=== PATIENT | male | born 1970 | race Caucasian/White ===

== ENCOUNTER 2021-06-30 09:45 | Inpatient (IN) ==
[2021-06-30] MEDS ORDERED: Ondansetron 4 MG/2 ML VIAL IVP ONE (10:22)
[2021-06-30 11:17] LABS: Basophils % 0.1 %; Eosinophils % 0.1 %; Hematocrit 42.4 % (37.5-50.1); Hemoglobin 14.6 g/dL (12.9-16.9); Immature Granulocytes % 0.5 % (0-4); Lymphocytes # 1.4 K/mcL (0.6-4.6); Lymphocytes % 7.6 %; Mean Corpuscular HGB Conc 34.4 g/dL (31.6-35.5); Mean Corpuscular Hemoglobin 30.6 pg (28.0-33.3); Mean Corpuscular Volume 88.9 fL (83.0-100.0); Mean Platelet Volume 10.7 fL (9.4-12.4); Monocytes # 1.2 K/mcL (0.0-1.3); Monocytes % 6.9 %; Platelet Count 303 K/mcL (140-400); Red Blood Count 4.77 M/mcL (4.19-5.50); Segmented Neutrophils % 84.8 %; White Blood Count 17.7 K/mcL (4.3-11.1)
[2021-06-30 11:40] LABS: Alanine Aminotransferase 21 Units/L (7-52); Albumin/Globulin Ratio 1.1 (1.1-2.2); Alkaline Phosphatase 87 Units/L (34-104); Aspartate Amino Transferase 19 Units/L (13-39); BUN/Creatinine Ratio 15 (6-26); Bilirubin,Total 1.3 mg/dL (0.3-1.0); Blood Urea Nitrogen 17 mg/dL (6-20); Calcium 9.3 mg/dL (8.6-10.3); Carbon Dioxide 21 mEq/L (23-29); Chloride 101 mEq/L (98-107); Globulin 3.8 g/dL (2.4-3.5); Glucose 166 mg/dL (70-105); Lipase 7 Units/L (11-82); Osmolality,Calculated 281 (280-300); Potassium 3.6 mEq/L (3.5-5.1); Sodium 133 mEq/L (136-145); Total Protein 7.8 g/dL (6.4-8.9); Troponin I 0.06 ng/mL (< 0.04); eGFR For African Americans > 60 (> 60); eGFR For Non-African Americans > 60 (> 60)
[2021-06-30 11:48] LABS: Influenza A PCR Negative (Negative); Influenza B PCR Negative (Negative); Resp. Syncytial Virus PCR Negative (Negative)
[2021-06-30 12:19] LABS: SARS-CoV-2 by PCR (In House) Negative (Negative)
[2021-06-30 12:32] LABS: Thyroid Stimulating Hormone 1.708 mcIU/mL (0.340-5.600)
[2021-06-30] MEDS ORDERED: Isovue-370 500 ML BOTTLE IVP ONE (12:41)
[2021-06-30 13:03] LABS: INR 1.4; Prothrombin Time 15.7 Seconds (9.4-12.1)
[2021-06-30 13:06] LABS: Activated Partial Thrombo Time 32.8 Seconds (26.0-36.0)
[2021-06-30] MEDS ORDERED: Aspirin 325 MG TABLET PO ONE (14:16)
[2021-06-30] MEDS ORDERED: Ondansetron 4 MG/2 ML VIAL IVP PRN (16:04)
[2021-06-30] MEDS ORDERED: Naloxone 0.4 MG/ML INJ IVP PRN (16:04)
[2021-06-30] MEDS ORDERED: Ringers Solution, Lactated 1,000 ML IVC ONE (16:10)
[2021-06-30] MEDS ORDERED: Dextrose Gel 15 GM/37.5 ML TUBE PO PRN ×2 (16:51)
[2021-06-30] MEDS ORDERED: D5% in Water 1,000 ML IVC PRN (16:51)
[2021-06-30] MEDS ORDERED: *HR* Dextrose 50 % in Water (Syg) 50 ML SYRINGE IVP PRN (16:51)
[2021-06-30] MEDS ORDERED: Ketorolac 30 MG/ML VIAL IVP PRN (17:34)
[2021-06-30] MEDS ORDERED: Acetaminophen 325 MG TABLET PO PRN (17:34)
[2021-06-30] MEDS: Ringers Solution, Lactated 1,000 ML IVC SCH (19:52)
[2021-06-30] MEDS ORDERED: *HR* HYDROmorphone (PF) 1 MG/ML SYRINGE IVP ONE (23:22)
[2021-07-01 01:34] LABS: Basophils % 0.2 %; Eosinophils # 0.1 K/mcL (0.0-0.6); Eosinophils % 0.6 %; Hematocrit 39.9 % (37.5-50.1); Hemoglobin 13.6 g/dL (12.9-16.9); Immature Granulocytes % 0.5 % (0-4); Lymphocytes # 2.1 K/mcL (0.6-4.6); Lymphocytes % 15.6 %; Mean Corpuscular HGB Conc 34.1 g/dL (31.6-35.5); Mean Corpuscular Hemoglobin 30.4 pg (28.0-33.3); Mean Corpuscular Volume 89.3 fL (83.0-100.0); Mean Platelet Volume 10.7 fL (9.4-12.4); Monocytes # 1.1 K/mcL (0.0-1.3); Monocytes % 8.7 %; Neutrophils # 9.8 K/mcL (1.6-8.9); Platelet Count 291 K/mcL (140-400); Red Blood Count 4.47 M/mcL (4.19-5.50); Red Cell Distribution Width 13.1 % (11.5-14.5); Segmented Neutrophils % 74.4 %; White Blood Count 13.2 K/mcL (4.3-11.1)
[2021-07-01 01:55] LABS: Alanine Aminotransferase 19 Units/L (7-52); Albumin 3.7 g/dL (3.5-5.7); Alkaline Phosphatase 76 Units/L (34-104); Aspartate Amino Transferase 16 Units/L (13-39); BUN/Creatinine Ratio 19 (6-26); Bilirubin,Direct 0.2 mg/dL (0.0-0.2); Bilirubin,Indirect 0.6 mg/dL (0.0-1.0); Bilirubin,Total 0.8 mg/dL (0.3-1.0); Blood Urea Nitrogen 21 mg/dL (6-20); Calcium 9.1 mg/dL (8.6-10.3); Carbon Dioxide 24 mEq/L (23-29); Chloride 103 mEq/L (98-107); Globulin 3.6 g/dL (2.4-3.5); Glucose 99 mg/dL (70-105); Osmolality,Calculated 287 (280-300); Potassium 3.6 mEq/L (3.5-5.1); Sodium 137 mEq/L (136-145); Total Protein 7.3 g/dL (6.4-8.9); eGFR For African Americans > 60 (> 60); eGFR For Non-African Americans > 60 (> 60)
[2021-07-01] MEDS: Ringers Solution, Lactated 1,000 ML IVC SCH (12:37)
[2021-07-02 02:28] LABS: Basophils % 0.2 %; Eosinophils # 0.1 K/mcL (0.0-0.6); Eosinophils % 1.1 %; Hematocrit 38.4 % (37.5-50.1); Hemoglobin 12.8 g/dL (12.9-16.9); Immature Granulocytes % 0.7 % (0-4); Lymphocytes # 1.8 K/mcL (0.6-4.6); Lymphocytes % 22.6 %; Mean Corpuscular HGB Conc 33.3 g/dL (31.6-35.5); Mean Corpuscular Hemoglobin 29.6 pg (28.0-33.3); Mean Corpuscular Volume 88.7 fL (83.0-100.0); Mean Platelet Volume 10.1 fL (9.4-12.4); Monocytes # 0.7 K/mcL (0.0-1.3); Monocytes % 8.9 %; Neutrophils # 5.4 K/mcL (1.6-8.9); Platelet Count 320 K/mcL (140-400); Red Blood Count 4.33 M/mcL (4.19-5.50); Segmented Neutrophils % 66.5 %; White Blood Count 8.1 K/mcL (4.3-11.1)
[2021-07-02 02:46] LABS: Alanine Aminotransferase 19 Units/L (7-52); Albumin 3.5 g/dL (3.5-5.7); Alkaline Phosphatase 69 Units/L (34-104); Aspartate Amino Transferase 20 Units/L (13-39); BUN/Creatinine Ratio 14 (6-26); Bilirubin,Total 0.5 mg/dL (0.3-1.0); Blood Urea Nitrogen 13 mg/dL (6-20); Calcium 8.7 mg/dL (8.6-10.3); Carbon Dioxide 25 mEq/L (23-29); Chloride 106 mEq/L (98-107); Globulin 3.5 g/dL (2.4-3.5); Glucose 105 mg/dL (70-105); Osmolality,Calculated 288 (280-300); Potassium 3.8 mEq/L (3.5-5.1); Sodium 139 mEq/L (136-145); eGFR For African Americans > 60 (> 60); eGFR For Non-African Americans > 60 (> 60)
[2021-07-02] MEDS: Ringers Solution, Lactated 1,000 ML IVC SCH (04:42)
[2021-07-02 11:19] VITALS: BP 126/54; PULSE 74; TEMP 98.6; O2SAT 93
[2021-07-02] MEDS ORDERED: FLU Vac QV 21-22 (6Month+)/PF 0.5 ML SYRINGE IM ONE (15:11)
== END 2021-07-02 16:33 | disposition home or self-care (01) | DRG 439 ==
LOC: EMEROOARM 09:45 → 3ANU 09:45 → SUATTDRO 16:28 → 3ANU 18:25
PROVIDERS: ADMIT Hospitalist; ATTEND Internal Medicine